=== PATIENT | male | born 1990 | race Hispanic/Latino ===

== ENCOUNTER 2020-04-02 16:25 | Emergency (ER) | payer OTHER, SELFPAY ==
[2020-04-02 16:32] VITALS: PULSE 78; RESP 16; TEMP 36.6; O2SAT 98; BMI 20.7
[2020-04-02 16:35] VITALS: BP 136/83
--- NOTE | 2020-04-02 16:49 | DI.RAD.S_ITS ---
PROCEDURE: XR HAND LT MIN 3V INDICATIONS: Laceration TECHNIQUE: 3 views of the hand(s) acquired. COMPARISON: None. FINDINGS: Bones: No fractures or dislocations. Carpal bones are normally aligned. No suspicious bony lesions. Soft tissues: No suspicious soft tissue calcifications. IMPRESSION: No acute osseous finding. Dictated by: Barry Garcia M.D. on 04/02/2020 at 17:00 Approved by: Barry Garcia M.D. on 04/02/2020 at 17:01
[2020-04-02] MEDS: BACITRACIN OINT 0.9 GM PCKT 1 APPLIC TOP (18:22)
[2020-04-02] MEDS: cephALEXin 250 MG CAPSULE 500 MG PO (18:22)
[2020-04-02] MEDS: LIDO 1%/SOD BICARB 8.4% (10ML) 10 ML SYRINGE INJ (18:22)
[2020-04-02 18:40] VITALS: BP 125/69; PULSE 70; RESP 14; O2SAT 100
[2020-04-02 18:47] VITALS: BP 131/74; PULSE 72; RESP 12; O2SAT 99
--- NOTE | 2020-04-02 19:39 | ED_ITS ---
HPI - Wound/Laceration <MALCOLM De La Garza - Last Filed: 04/02/20 19:44> General Chief Complaint: Wound/Laceration Stated Complaint: cut left hand Time Seen by Provider: 04/02/20 17:13 Source: patient Mode of arrival: Ambulatory Limitations: no limitations History of Present Illness HPI narrative: Hand the patient is a 30-year-old male current smoker with history of left finger surgeries who presents with a chief complaint of a cut on his left hand. He caught the back of his hand on a screw and has a cut on the back of his hand. He states he has full range of motion all fingers. States his tetanus was may be updated 7 years ago or so. He has not washed out, states that the wound is very contaminated. Related Data Previous Rx's Medication Instructions Recorded cephalexin 500 mg PO TID 7 Days #21 cap 04/02/20 Review of Systems <MALCOLM De La Garza - Last Filed: 04/02/20 19:44> Review of Systems Narrative: GENERAL: Denies chills, fatigue, malaise, fever, sweats. HEENT: Denies sinus pain, ear pain, sore throat, difficulty swallowing, dizziness. RESPIRATORY: Denies dyspnea, cough, wheezing, hemoptysis, sputum. CARDIOVASCULAR: Denies chest pain, palpitations, orthopnea, edema, GASTROINTESTINAL: Denies nausea, vomiting, abdominal pain, diarrhea, constipation, melena. : Denies dysuria, frequency, incontinence, hematuria, urinary retention. MUSCULOSKELETAL: See HPI SKIN: HPI NEUROLOGIC: Denies weakness, headache, numbness, change in speech, confusion, seizures, incoordination. PSYCHIATRIC: No concerning psychosocial issues. 12 point review of systems is negative except for those stated above Patient History <MALCOLM De La Garza - Last Filed: 04/02/20 19:44> Social History Smoking Status: Current every day smoker Smoking Status: Current every day smoker alcohol intake frequency: 0-2 drinks per day Substance Use Type: does not use Exam <MALCOLM De La Garza - Last Filed: 04/02/20 19:44> Narrative Exam Narrative: GENERAL: This is a well-nourished, well-developed patient, in no acute distress HEAD: Atraumatic. Normocephalic. No temporal or scalp tenderness. EYES: Pupils equal round and reactive. Extraocular motions intact. No scleral icterus. No injection or drainage. ENT: Nose without bleeding, purulent drainage or septal hematoma. Wearing a mask. Airway patent. NECK: Trachea midline. No JVD or lymphadenopathy. Supple, nontender, no meningeal signs. CARDIOVASCULAR: Regular rate and rhythm RESPIRATORY: No cough. No increased respiratory effort. No accessory muscle use. EXTREMITIES: Skin exam as noted. Able to flex and extend all fingers against resistance. Capillary refill less than 2 seconds all fingers left hand. Positive left radial pulse. NEURO: AOx3. SKIN: 3 cm laceration noted on dorsum of left hand. Through dermis, oozing blood, no obvious muscle or tendon involvement, though subcutaneous tissue is visible. Initial Vital Signs Initial Vital Signs: Vital Signs Temperature 97.8 F 04/02/20 16:32 Pulse Rate 78 04/02/20 16:32 Respiratory Rate 16 04/02/20 16:32 Pulse Oximetry 98 04/02/20 16:32 <Irma Richey DO - Last Filed: 04/06/20 08:12> Initial Vital Signs Initial Vital Signs: Vital Signs Temperature 97.8 F 04/02/20 16:32 Pulse Rate 78 04/02/20 16:32 Respiratory Rate 16 04/02/20 16:32 Pulse Oximetry 98 04/02/20 16:32 Procedures <MALCOLM De La Garza - Last Filed: 04/02/20 19:44> Laceration Repair Laceration 1: Site: hand Side (If applicable): left Size (cm): 3 Description: linear Depth: simple, single layer Local Anesthetic: lidocaine 1% and with bicarb Amount of anesthesia used (mL): 6 Pre-repair: wound explored, irrigated extensively (Cleansed with povidone- iodine, hip a) and deep structures intact Skin layer closed with: nylon Size (cm): 4-0 Number of sutures: 6 Technique: simple, interrupted Scores <MALCOLM De La Garza - Last Filed: 04/02/20 19:44> GCS Krzysztof coma scale eye opening: Spontaneous [place] coma scale verbal response: Orientated Krzysztof coma scale motor response: Obey commands Krzysztof coma scale total score: 15 Course <BAHMAN De La GarzaP-BC - Last Filed: 04/02/20 19:44> Orders Ordered: Discontinued Medications Bacitracin (Bacitracin) 1 applic TOP NOW ONE Stop: 04/02/20 18:18 Last Admin: 04/02/20 18:22 Dose: 1 applic Documented by: NAIDA Cephalexin HCl (Keflex) 500 mg PO NOW ONE Stop: 04/02/20 18:18 Last Admin: 04/02/20 18:22 Dose: 500 mg Documented by: NAIDA Lidocaine/Sodium Bicarbonate (Buffered Lidocaine 10 Ml Syr) 10 ml INJ NOW ONE Stop: 04/02/20 17:30 Last Admin: 04/02/20 18:22 Dose: 10 ml Documented by: NAIDA Vital Signs Vital signs: Vital Signs - 8 hr 04/02/20 16:32 04/02/20 16:35 04/02/20 18:40 Temperature 97.8 F Pulse Rate 78 70 Respiratory Rate 16 14 Blood Pressure 136/83 125/69 Pulse Oximetry 98 100 04/02/20 18:47 Temperature Pulse Rate 72 Respiratory Rate 12 Blood Pressure 131/74 Pulse Oximetry 99 <Irma Richey DO - Last Filed: 04/06/20 08:12> Orders Ordered: Discontinued Medications Bacitracin (Bacitracin) 1 applic TOP NOW ONE Stop: 04/02/20 18:18 Last Admin: 04/02/20 18:22 Dose: 1 applic Documented by: NAIDA Cephalexin HCl (Keflex) 500 mg PO NOW ONE Stop: 04/02/20 18:18 Last Admin: 04/02/20 18:22 Dose: 500 mg Documented by: NAIDA Lidocaine/Sodium Bicarbonate (Buffered Lidocaine 10 Ml Syr) 10 ml INJ NOW ONE Stop: 04/02/20 17:30 Last Admin: 04/02/20 18:22 Dose: 10 ml Documented by: NAIDA Vital Signs Vital signs: Vital Signs - 8 hr 04/02/20 16:32 04/02/20 16:35 04/02/20 18:40 Temperature 97.8 F Pulse Rate 78 70 Respiratory Rate 16 14 Blood Pressure 136/83 125/69 Pulse Oximetry 98 100 04/02/20 18:47 Temperature Pulse Rate 72 Respiratory Rate 12 Blood Pressure 131/74 Pulse Oximetry 99 MDM - Wound/Laceration <JAIMEE De La Garza-BC - Last Filed: 04/02/20 19:44> Imaging Data Extremity x-ray #1: Radiologist's Impression: [address] [place] [id number] XRay Report Signed Patient: Tian Tarango [facility]#: [id number] : 1990Acct:[id number] Age/Sex: 30 / MDate of Service: 04/02/20 Loc: ED Accession Number: [id number] Procedure: XR hand LT min 3V Ordering Provider: Irma Richey D.O. PROCEDURE: XR HAND LT MIN 3V INDICATIONS: Laceration TECHNIQUE: 3 views of the hand(s) acquired. COMPARISON: None. FINDINGS: Bones: No fractures or dislocations. Carpal bones are normally aligned. No suspicious bony lesions. Soft tissues: No suspicious soft tissue calcifications. IMPRESSION: No acute osseous finding. Dictated by: Barry Garcia M.D. on 04/02/2020 at 17:00 Approved by: Barry Garcia M.D. on 04/02/2020 at 17:01 [facility] Narrative Medical decision making narrative: The patient is a 30-year-old male who presents with a chief complaint of laceration. He is not sure about his last tetanus, thinks it was about 7 years ago as we did update his tetanus today. X- ray has no acute findings. He is neurovascularly intact, able to flex and extend all fingers against resistance. Given high wound contamination, we did place him on antibiotics which she tolerated well in the emergency department. I discussed at length monitoring for signs and symptoms of infection such as drainage etcetera. Encouraged follow-up with primary care provider in the next few days. Discussed suture removal in 1 week. Did give patient light duty to not stress is sutures. Patient has no questions or concerns upon discharge and states understanding return precautions as well as follow-up care. Discharge Plan Departure Patient Disposition: Home Clinical Impression: Laceration Discharge Date/Time: 04/02/20 18:49 Instructions: How to Care for a Laceration After Repair, DI for Laceration Repair Activity Restrictions/Additional Instructions: Thank you for trusting us with your care today. I have placed 6 sutures in your hand. Please follow-up in 1 week for suture removal. Given the contamination of the wound, I have placed you on antibiotics. Please take them with probiotics or yogurt. Please monitor for signs of infection including purulent drainage spreading redness from the site etcetera and follow up with these occur I have given you a note for light duty for 1 week so that you do not stress your sutures. Prescriptions: New cephalexin 500 mg capsule 500 mg PO TID 7 Days Qty: 21 RF: 0 Stand Alone Forms: Work Release Note <Irma Richey, - Last Filed: 04/06/20 08:12> Cosign ED Attending Cosrodrigoature Attestation: I was immediately available in the department for consultation. Documentation has been reviewed. I agree with assessment and plan.
== END 2020-04-02 18:49 | disposition home or self-care (01) ==
PROVIDERS: Emergency Provider Nurse Practitioner Family
DX: S61.412A Laceration without foreign body of left hand, initial encounter (principal); W26.9XXA Contact with unspecified sharp object(s), initial encounter; Y99.0 Civilian activity done for income or pay
CPT/HCPCS: 12002; 73130; 99283; 99284